=== PATIENT | female | born 1930 | race Caucasian/White ===

== ENCOUNTER 2017-07-01 13:56 | Inpatient (IN) | payer MEDICARE, BC ==
[~2017-07-01] VITALS: Ht 152.4 cm; Wt 60.3 kg
[~2017-07-01 13:56] MED LIST: ALDACTONE 25MG25 M1 PO; ALENDRONATE SOD70 M1 PO; AMITRIPTYLINE10 MG PO; ASPIR-LOW81 MG PO; ASPIRIN 81M81 MG/TA2 PO; AUGMENTIN 250 M1 TAB PO; CLARITIN 1010 MG/TAB PO; ELAVIL50 MG PO; FLONASE NASAL S16 GM NS; LASIX 20MG TABL20 MG PO; LOPRESSOR 225 MG/TAB PO; LOW DOSE ASPIRI81 MG PO; MELOXICAM7.5 MG PO; METOPROLOL SR50 MG PO; METOPROLOL SUCC25 M1 PO; MULTIPLE VITAMI1 CAP PO; OXYBUTYNIN5 MG PO; PLAVIX 75MG TAB75 MG PO; PROTONIX 40MG T40 MG PO; TOPROL XL 25MG25 MG PO; VITAMIN C PUR1000 MG PO; ZITHROMAX 250M250 MG PO; ZOCOR 10MG10 MG PO; ZOLOFT 100MG100 MG PO; ZOLOFT 50MG50 MG PO; ZOLOFT25 MG PO
[2017-07-01] MEDS ORDERED: CLARITIN 1010 MG/TAB PO (14:29)
[2017-07-01 15:08] LABS: BASO % 0.1 % (0.0-2.0); EOS % 0.1 % (0-4.0); GRAN # 13.4 (1.4-6.5); GRAN % 89.2 % (42.2-75.2); HEMATOCRIT 47.8 % (37.0-47.0); HEMOGLOBIN 14.6 g/dl (12.5-16.0); LYMPH # 0.9 (1.2-3.4); LYMPH % 5.7 % (20.0-51.0); MEAN CELL VOLUME 98 fl (80.0-100.0); MEAN CORPUSCULAR HEMOGLOBIN 30 pg (27.0-31.0); MEAN CORPUSCULAR HGB CONC 31 g/dl (33.0-37.0); MONO # 0.7 (0.1-0.6); MONO % 4.5 % (1.7-9.3); PLATELET COUNT 108 K/mm3 (130-400); RED BLOOD COUNT 4.88 M/mm3 (4.10-5.30)
[2017-07-01 15:17] LABS: INR 1.1 (0.8-3.0); PROTHROMBIN TIME 11.9 SECONDS (9.7-12.8)
[2017-07-01 15:19] LABS: PARTIAL THROMBOPLASTIN TIME 31.2 SECONDS (26.0-37.0)
[2017-07-01 15:20] LABS: ADJUSTED CALCIUM 9.3 mg/dL (8.4-10.2); ALANINE AMINOTRANSFERASE 25 U/L (9-52); ALBUMIN 3.2 gm/dL (3.5-5.0); ALKALINE PHOSPHATASE 97 U/L (50-136); BLOOD UREA NITROGEN 10 mg/dL (7-17); CALCIUM 8.7 mg/dL (8.4-10.2); CREATINE KINASE < 20 U/L (30-135); CREATININE, serum 0.55 mg/dL (0.52-1.25); GLUCOSE 148 mg/dL (74-106); POTASSIUM 3.7 mmol/L (3.4-5.0); SODIUM 137 mmol/L (137-145); TOTAL PROTEIN 5.5 gm/dL (6.4-8.2)
[2017-07-01 15:22] LABS: CHLORIDE 88 mmol/L (98-107)
[2017-07-01 15:32] LABS: B-TYPE NATRIURETIC PEPTIDE 1590 pg/mL (0-450)
[2017-07-01 15:34] LABS: CARBON DIOXIDE 43 mmol/L (22-30)
[2017-07-01 15:36] LABS: TROPONIN-I 0.041 ng/mL (0.000-0.034)
[2017-07-01 15:41] LABS: ARTERIAL BLD GAS O2 SATURATION 97.5 % (92-100); ARTERIAL BLD GAS TCO2 CT 44.7; ARTERIAL BLOOD GAS BASE EXCESS 14.3 (-2-2); ARTERIAL BLOOD GAS HCO3 42.5 meq/L (22-26); ARTERIAL BLOOD GAS PHT 7.41 C (7.35-7.45); ARTERIAL BLOOD GAS PO2 98.8 mmHg (80-100); ARTERIAL BLOOD GAS PO2T 98.8 (80-100); ARTERIAL BLOOD GAS pH 7.41 (7.35-7.45); OXYHEMOGLOBIN 96.2 %
[2017-07-01 15:43] LABS: ALLEN TEST YES; ALLENS TEST RESULT PASS; ATS? YES
[2017-07-01 16:55] LABS: ANION GAP 6 mmol/L (7-16)
[2017-07-01 18:49] VITALS: BP 95/53; PULSE 63; TEMP 97.8
[2017-07-01 20:31] VITALS: BP 105/61; PULSE 94; TEMP 97.9
[2017-07-01 22:35] VITALS: BP 108/60; PULSE 79; TEMP 97.9
[2017-07-01 23:51] VITALS: BP 104/65; PULSE 99; TEMP 97.8
[2017-07-02 04:57] VITALS: BP 108/63; PULSE 92; TEMP 97.2
[2017-07-02 07:18] LABS: ADD PATHOLOGY DIFF REVIEW NO
[2017-07-02 07:31] LABS: HEMATOCRIT 45.1 % (37.0-47.0); HEMOGLOBIN 13.9 g/dl (12.5-16.0); MEAN CELL VOLUME 100 fl (80.0-100.0); MEAN CORPUSCULAR HEMOGLOBIN 31 pg (27.0-31.0); MEAN CORPUSCULAR HGB CONC 31 g/dl (33.0-37.0); MEAN PLATELET VOLUME 12.1 fl (7.4-10.4); PLATELET COUNT 93 K/mm3 (130-400); RED BLOOD COUNT 4.53 M/mm3 (4.10-5.30); WHITE BLOOD COUNT 11.7 K/mm3 (4.8-10.8)
[2017-07-02 07:43] VITALS: BP 120/77; PULSE 92; TEMP 97.5
[2017-07-02 07:45] LABS: CALCIUM 8.3 mg/dL (8.4-10.2); CREATININE, serum 0.5 mg/dL (0.52-1.25); POTASSIUM 3.2 mmol/L (3.4-5.0)
[2017-07-02 07:55] LABS: TROPONIN-I 0.054 ng/mL (0.000-0.034)
[2017-07-02 08:49] LABS: BAND 5 % (0-10); EOSINOPHIL 1 % (0-4); LYMPHOCYTE 16 % (20.0-51.0); METAMYELOCYTE 1 % (0-0); NEUTROPHILS 73 % (42.0-75.2); PLATELET ESTIMATE DECREASED (NORMAL); TOTAL CELLS COUNTED 100
[2017-07-02 08:50] LABS: HYPOCHROMIA 1+
[2017-07-02 11:04] VITALS: BP 109/65; PULSE 76; TEMP 97.5
[2017-07-02 16:00] VITALS: BP 104/61; PULSE 81; TEMP 97.8
[2017-07-02 19:56] VITALS: BP 102/58; PULSE 78; TEMP 98.2
[2017-07-02 23:54] VITALS: BP 106/63; PULSE 85; TEMP 98.2
[2017-07-03 04:04] VITALS: BP 101/51; PULSE 87; TEMP 97.7
[2017-07-03 07:34] VITALS: BP 108/66; PULSE 72; TEMP 98
[2017-07-03 07:50] LABS: CALCIUM 8.3 mg/dL (8.4-10.2); CREATININE, serum 0.54 mg/dL (0.52-1.25); MAGNESIUM 1.7 mg/dL (1.6-2.3); POTASSIUM 3.8 mmol/L (3.4-5.0)
[2017-07-03 10:32] LABS: ARTERIAL BLD GAS O2 SATURATION 96.5 % (92-100); ARTERIAL BLOOD GAS BASE EXCESS 17.9 (-2-2); ARTERIAL BLOOD GAS HCO3 47.6 meq/L (22-26); ARTERIAL BLOOD GAS PO2 88.1 mmHg (80-100); OXYHEMOGLOBIN 95.1 %
[2017-07-03 10:34] LABS: ATS? YES
[2017-07-03 11:36] VITALS: BP 102/70; PULSE 87; TEMP 98
[2017-07-03 15:51] LABS: CALCIUM 8.4 mg/dL (8.4-10.2); CREATININE, serum 0.66 mg/dL (0.52-1.25); MAGNESIUM 1.7 mg/dL (1.6-2.3); POTASSIUM 3.8 mmol/L (3.4-5.0)
[2017-07-03 16:30] VITALS: BP 102/49; PULSE 92; TEMP 98
[2017-07-03 20:24] VITALS: BP 107/44; PULSE 82; TEMP 97.9
[2017-07-04 01:22] VITALS: BP 108/66; PULSE 76; TEMP 97.4
[2017-07-04 05:24] VITALS: BP 122/60; PULSE 79; TEMP 98.4
[2017-07-04 06:08] LABS: ARTERIAL BLD GAS O2 SATURATION 96.2 % (92-100); ARTERIAL BLD GAS TCO2 CT 46.4; ARTERIAL BLOOD GAS BASE EXCESS 14.4 (-2-2); ARTERIAL BLOOD GAS PHT 7.37 C (7.35-7.45); ARTERIAL BLOOD GAS PO2 87.3 mmHg (80-100); ARTERIAL BLOOD GAS PO2T 86.7 (80-100); ARTERIAL BLOOD GAS pH 7.37 (7.35-7.45); OXYHEMOGLOBIN 94.8 %
[2017-07-04 06:10] LABS: ALLEN TEST YES; ALLENS TEST RESULT PASS; ATS? YES
[2017-07-04 07:09] LABS: BASO % 0.1 % (0.0-2.0); EOS # 0.1 (0.0-0.7); EOS % 0.7 % (0-4.0); HEMATOCRIT 45.2 % (37.0-47.0); LYMPH # 0.9 (1.2-3.4); LYMPH % 6.3 % (20.0-51.0); MEAN CELL VOLUME 99 fl (80.0-100.0); MEAN CORPUSCULAR HEMOGLOBIN 31 pg (27.0-31.0); MEAN CORPUSCULAR HGB CONC 31 g/dl (33.0-37.0); MEAN PLATELET VOLUME 12.8 fl (7.4-10.4); MONO # 0.8 (0.1-0.6); MONO % 5.4 % (1.7-9.3); PLATELET COUNT 106 K/mm3 (130-400); RED BLOOD COUNT 4.59 M/mm3 (4.10-5.30); WHITE BLOOD COUNT 13.8 K/mm3 (4.8-10.8)
[2017-07-04 07:36] LABS: CALCIUM 8.6 mg/dL (8.4-10.2); CREATININE, serum 0.67 mg/dL (0.52-1.25); MAGNESIUM 1.9 mg/dL (1.6-2.3); POTASSIUM 3.8 mmol/L (3.4-5.0)
[2017-07-04 08:23] VITALS: BP 110/60; PULSE 74; TEMP 97.8
[2017-07-04 11:11] VITALS: BP 104/58; PULSE 80; TEMP 98.1
[2017-07-04 11:12] LABS: COLLECTION METHOD CATHETER
[2017-07-04 11:30] LABS: PH 8 (5-8); SQUAMOUS EPITHELIAL 0-2 /hpf; URINE APPEARANCE Clear; URINE BACTERIA None Seen /hpf; URINE BILIRUBIN Negative (NEGATIVE); URINE BLOOD 3+ (NEGATIVE); URINE CALCIUM OXALATE CRYSTAL Present /hpf; URINE COLOR Straw; URINE GLUCOSE Negative (NEGATIVE); URINE KETONE Negative (NEGATIVE); URINE LEUKOCYTE ESTERASE Trace (NEGATIVE); URINE PROTEIN(semi-quant) Negative (NEGATIVE); URINE RBC >50 /hpf; URINE UROBILINOGEN Negative (NEGATIVE)
[2017-07-04 15:58] VITALS: BP 92/54; PULSE 72; TEMP 98.2
[2017-07-04 19:40] VITALS: BP 114/61; PULSE 78; TEMP 98.4
[2017-07-05 01:40] VITALS: BP 102/52; PULSE 65; TEMP 98.2
[2017-07-05 07:05] LABS: BASO % 0.1 % (0.0-2.0); EOS # 0.1 (0.0-0.7); EOS % 0.8 % (0-4.0); GRAN # 10.2 (1.4-6.5); GRAN % 85.5 % (42.2-75.2); HEMOGLOBIN 13.9 g/dl (12.5-16.0); LYMPH # 0.9 (1.2-3.4); LYMPH % 7.4 % (20.0-51.0); MEAN CELL VOLUME 100 fl (80.0-100.0); MEAN CORPUSCULAR HEMOGLOBIN 30 pg (27.0-31.0); MEAN CORPUSCULAR HGB CONC 30 g/dl (33.0-37.0); MEAN PLATELET VOLUME 12.9 fl (7.4-10.4); MONO # 0.7 (0.1-0.6); MONO % 5.8 % (1.7-9.3); PLATELET COUNT 103 K/mm3 (130-400); RED BLOOD COUNT 4.62 M/mm3 (4.10-5.30)
[2017-07-05 07:20] LABS: CALCIUM 8.9 mg/dL (8.4-10.2); CREATININE, serum 0.69 mg/dL (0.52-1.25); MAGNESIUM 2.1 mg/dL (1.6-2.3); PHOSPHOROUS 4.3 mg/dL (2.5-4.5); POTASSIUM 4.4 mmol/L (3.4-5.0)
[2017-07-05 08:48] VITALS: BP 114/67; PULSE 67; TEMP 98.4
[2017-07-05 11:55] VITALS: BP 103/58; PULSE 71; TEMP 97.4
[2017-07-05 16:47] VITALS: BP 108/64; PULSE 47; TEMP 97.5
[2017-07-05 21:28] VITALS: BP 139/64; PULSE 72; TEMP 97.8
[2017-07-05 23:40] VITALS: BP 96/62; PULSE 64; TEMP 97.9
[2017-07-06 03:10] VITALS: BP 95/46; PULSE 71; TEMP 97.2
[2017-07-06 08:00] VITALS: BP 104/61; PULSE 72; TEMP 97.7
[2017-07-06 08:39] LABS: BASO % 0.1 % (0.0-2.0); EOS # 0.1 (0.0-0.7); EOS % 0.7 % (0-4.0); GRAN # 12.9 (1.4-6.5); GRAN % 86.9 % (42.2-75.2); HEMATOCRIT 45.5 % (37.0-47.0); HEMOGLOBIN 14.2 g/dl (12.5-16.0); LYMPH # 0.9 (1.2-3.4); LYMPH % 5.9 % (20.0-51.0); MEAN CELL VOLUME 97 fl (80.0-100.0); MEAN CORPUSCULAR HEMOGLOBIN 30 pg (27.0-31.0); MEAN CORPUSCULAR HGB CONC 31 g/dl (33.0-37.0); MEAN PLATELET VOLUME 12.8 fl (7.4-10.4); MONO # 0.9 (0.1-0.6); MONO % 5.8 % (1.7-9.3); PLATELET COUNT 104 K/mm3 (130-400); RED BLOOD COUNT 4.69 M/mm3 (4.10-5.30); WHITE BLOOD COUNT 14.9 K/mm3 (4.8-10.8)
[2017-07-06 08:52] LABS: CALCIUM 8.8 mg/dL (8.4-10.2); CREATININE, serum 0.73 mg/dL (0.52-1.25); MAGNESIUM 2.1 mg/dL (1.6-2.3)
[2017-07-06 12:00] VITALS: BP 107/54; PULSE 79; TEMP 98.4
[2017-07-06 16:10] VITALS: BP 102/61; PULSE 76; TEMP 98.5
[2017-07-06 22:21] VITALS: BP 107/60; PULSE 79; TEMP 97.6
[2017-07-07 04:12] VITALS: BP 106/57; PULSE 71; TEMP 97.6
[2017-07-07 08:00] VITALS: BP 102/59; PULSE 75; TEMP 98.2
[2017-07-07 09:24] LABS: BASO % 0.1 % (0.0-2.0); EOS # 0.1 (0.0-0.7); EOS % 0.5 % (0-4.0); GRAN # 13.3 (1.4-6.5); GRAN % 87.2 % (42.2-75.2); HEMATOCRIT 44.1 % (37.0-47.0); HEMOGLOBIN 13.8 g/dl (12.5-16.0); LYMPH # 0.9 (1.2-3.4); LYMPH % 6.1 % (20.0-51.0); MEAN CELL VOLUME 97 fl (80.0-100.0); MEAN CORPUSCULAR HEMOGLOBIN 30 pg (27.0-31.0); MEAN CORPUSCULAR HGB CONC 31 g/dl (33.0-37.0); MONO # 0.8 (0.1-0.6); MONO % 5.4 % (1.7-9.3); PLATELET COUNT 109 K/mm3 (130-400); RED BLOOD COUNT 4.57 M/mm3 (4.10-5.30); WHITE BLOOD COUNT 15.2 K/mm3 (4.8-10.8)
[2017-07-07 09:26] LABS: CALCIUM 8.8 mg/dL (8.4-10.2); CREATININE, serum 0.66 mg/dL (0.52-1.25); POTASSIUM 3.6 mmol/L (3.4-5.0)
[2017-07-07 12:47] VITALS: BP 106/63; PULSE 74; TEMP 97.9
[2017-07-07 15:03] VITALS: BP 99/56; PULSE 76; TEMP 97.8
[2017-07-07 19:21] VITALS: BP 107/56; PULSE 78; TEMP 98.9
[2017-07-07 23:48] VITALS: BP 101/42; PULSE 77; TEMP 97.6
[2017-07-08 03:45] VITALS: BP 95/52; PULSE 71; TEMP 97.8
[2017-07-08 08:15] VITALS: BP 96/54; PULSE 69; TEMP 98.6
[2017-07-08 08:15] LABS: BASO % 0.1 % (0.0-2.0); EOS # 0.1 (0.0-0.7); EOS % 0.7 % (0-4.0); GRAN # 12.9 (1.4-6.5); GRAN % 86.1 % (42.2-75.2); HEMATOCRIT 43.4 % (37.0-47.0); HEMOGLOBIN 13.5 g/dl (12.5-16.0); LYMPH % 6.9 % (20.0-51.0); MEAN CELL VOLUME 98 fl (80.0-100.0); MEAN CORPUSCULAR HEMOGLOBIN 30 pg (27.0-31.0); MEAN CORPUSCULAR HGB CONC 31 g/dl (33.0-37.0); MEAN PLATELET VOLUME 12.8 fl (7.4-10.4); MONO # 0.9 (0.1-0.6); MONO % 5.7 % (1.7-9.3); PLATELET COUNT 110 K/mm3 (130-400); RED BLOOD COUNT 4.45 M/mm3 (4.10-5.30); WHITE BLOOD COUNT 14.9 K/mm3 (4.8-10.8)
[2017-07-08 08:31] LABS: CALCIUM 8.7 mg/dL (8.4-10.2); CREATININE, serum 0.63 mg/dL (0.52-1.25); MAGNESIUM 2.1 mg/dL (1.6-2.3)
[2017-07-08 11:39] VITALS: BP 104/51; PULSE 70; TEMP 97.2
[2017-07-08] MEDS ORDERED: LOPRESSOR 225 MG/TAB PO (15:08)
[2017-07-08] MEDS ORDERED: ELIQUIS 2.5 PO (15:08)
[2017-07-08] MEDS ORDERED: ASPIRIN E.C. 8181 MG PO (15:09)
[2017-07-08] MEDS ORDERED: LASIX 40MG TABL40 MG PO (15:09)
[2017-07-08] MEDS ORDERED: ROCEPHIN VIA1 G/VIAL IM (15:19)
[2017-07-08 16:11] VITALS: BP 104/51; PULSE 70; TEMP 97.2
== END 2017-07-08 16:51 | DRG 280 ==
LOC: COL.ER 13:56 → MEDICAL 17:31
PROVIDERS: Emergency Medicine; Internal Medicine; Internal Medicine Critical Care Medicine; Nurse Practitioner Family; Physician Assistant
DX: I50.33 Acute on chronic diastolic (congestive) heart failure (principal); I21.A1 Myocardial infarction type 2; J96.21 Acute and chronic respiratory failure with hypoxia; E87.3 Alkalosis; E87.1 Hypo-osmolality and hyponatremia; N39.0 Urinary tract infection, site not specified; Z66 Do not resuscitate; I48.0 Paroxysmal atrial fibrillation; Z95.2 Presence of prosthetic heart valve; Z87.891 Personal history of nicotine dependence; I73.9 Peripheral vascular disease, unspecified; B96.20 Unspecified Escherichia coli [E. coli] as the cause of diseases classified elsewhere; I27.22 Pulmonary hypertension due to left heart disease; I08.1 Rheumatic disorders of both mitral and tricuspid valves
CPT/HCPCS: 99222-AI; 99231-AI; 99232-AI; 99239; J0696; J1120; J1644; J1940

== ENCOUNTER → 2017-07-10 | Outpatient (REF) ==
[~2017-07-10] MED LIST changes: +ASPIRIN E.C. 8181 MG PO; +ELIQUIS 2.5 PO; +LASIX 40MG TABL40 MG PO; +ROCEPHIN VIA1 G/VIAL IM
[2017-07-10 15:44] LABS: CALCIUM 8.6 mg/dL (8.4-10.2); CREATININE, serum 0.64 mg/dL (0.52-1.25); MAGNESIUM 1.8 mg/dL (1.6-2.3); POTASSIUM 3.4 mmol/L (3.4-5.0)
== END ==
LOC: ZLAB.STJ 15:30
PROVIDERS: Family Medicine
DX: E83.40 Disorders of magnesium metabolism, unspecified (principal); R79.89 Other specified abnormal findings of blood chemistry